=== PATIENT | female | born 1985 | race African-American/Black ===

== ENCOUNTER 2021-01-29 14:50 | Inpatient (IN) | payer MEDICARE, OTHER ==
[~2021-01-29] VITALS: Ht 160 cm; Wt 119.5 kg
--- NOTE | 2021-01-29 15:20 | NUR ---
35 YRS FEMALE TRANSFER FROM SNF FOR missing HD LAST HD ON 01/20/21 PT AV SHUNT ON LT UPPER ARM with good bruit seen by dr BYRD
[2021-01-29 15:36] LABS: HEMATOCRIT 24.9 % (31.2-41.9); MEAN CORPUSCULAR HEMOGLOBIN 30.8 uug (24.7-32.8); MEAN CORPUSCULAR VOLUME 96.5 fL (75.5-95.3); PLATELET COUNT (AUTO) 199 K/uL (179-408)
[2021-01-29 15:50] LABS: BILIRUBIN,DIRECT 0.3 mg/dL (0.0-0.2); BILIRUBIN,TOTAL 0.7 mg/dL (0.2-1.0)
[2021-01-29 16:00] LABS: POTASSIUM 5.5 mmol/L (3.5-5.1)
[2021-01-29 16:02] LABS: CREATININE 9.1 mg/dL (0.6-1.3)
--- NOTE | 2021-01-29 16:40 | NUR ---
no pain noted plan to admit pt inpt for HD genralized edema skin intact coved swab sent to lab
--- NOTE | 2021-01-29 17:10 | NUR ---
blood drow by lab tach vs stable
[2021-01-29] MEDS ORDERED: ONDANSETRON 4 MG/2 ML VIAL IV PRN (17:45)
[2021-01-29] MEDS ORDERED: MAGNESIUM HYDROXIDE 30 ML LIQUID UDC PO PRN (17:45)
[2021-01-29] MEDS ORDERED: Z GUARD REMEDY PASTE 57 GM TUBE TOP PRN (17:45)
[2021-01-29] MEDS ORDERED: DOCU100C36 PO (17:46)
[2021-01-29] MEDS ORDERED: CARV3.122 PO (17:46)
[2021-01-29] MEDS ORDERED: PANT40TA2 PO (17:46)
[2021-01-29] MEDS ORDERED: IPRA3AMP23 NEB (17:46)
[2021-01-29] MEDS ORDERED: FOLI0.8T43 PO (17:46)
[2021-01-29] MEDS ORDERED: ATOR40TA PO (17:46)
[2021-01-29] MEDS ORDERED: MIDO5TAB5 PO (17:46)
[2021-01-29] MEDS ORDERED: ASCO500T10 PO (17:46)
[2021-01-29] MEDS ORDERED: FENO48TA6 PO (17:46)
[2021-01-29] MEDS ORDERED: CHOL-9 PO (17:46)
[2021-01-29] MEDS ORDERED: BICT1TAB PO (17:46)
[2021-01-29] MEDS ORDERED: SENN-18 PO (17:46)
[2021-01-29] MEDS ORDERED: DIVA250T PO (17:46)
--- NOTE | 2021-01-29 18:10 | NUR ---
resting and comfortable no pain noted wating for lab result
[2021-01-29] MEDS ORDERED: DEXTROSE 50% 50 ML DISP.SYRIN IV PRN (18:45)
[2021-01-29] MEDS ORDERED: INSULIN REGULAR, HUMAN 300 UNITS/3 ML VIAL SQ PRN (18:45)
[2021-01-29] MEDS ORDERED: INSULIN REGULAR, HUMAN 300 UNIT/3 ML VIAL SQ PRN (18:45)
--- NOTE | 2021-01-29 19:18 | NUR ---
HAND OFF TO Alex patel for room
[2021-01-29] MEDS: CARVEDILOL 3.125 MG TABLET PO SCH (19:28)
[2021-01-29] MEDS ORDERED: CARVEDILOL 3.125 MG TABLET ONE (19:34)
--- NOTE | 2021-01-29 20:28 | NUR ---
Report given to Enedelia PENA Tele.
[2021-01-29] MEDS: FENOFIBRATE NANOCRYSTALLIZED 48 MG TABLET PO SCH (21:00)
--- NOTE | 2021-01-29 21:00 | NUR ---
Admitted a 35 years old female with Dx of fluid overload and ESRD. Patient AAox4. In no acute distress. On O2 at 2LPM via NC in place. AV shunt on left upper arm. IV site on right hand intact and patent. NSR on tele with HR of 68/min. Routine admission cafe done. Plan of care initiated. Safety measure initiated and call bel within reached.
[2021-01-29] MEDS: ATORVASTATIN 40 MG TABLET PO SCH (21:38)
[2021-01-29] MEDS: SENNOSIDES 1 TABLET PO SCH (21:38)
[2021-01-29] MEDS: ACETAMINOPHEN 325 MG TABLET PO PRN (21:40)
[2021-01-29] MEDS: BLOOD SUGAR DIAGNOSTIC 1 EACH STRIP VI SCH (21:45)
--- NOTE | 2021-01-29 21:56 | NUR ---
Tricor medication not available per supervisor furnace room Kristin
--- NOTE | 2021-01-29 23:01 | NUR ---
Informed GEOPHYSICIST Inga Enriquez that patient has a hanging IV site on right hand and patient reported that she is a hard stick. Obtained order to place midline.
--- NOTE | 2021-01-30 00:04 | NUR ---
Patient accidentally pulled out IV on right hand area. Midline insertion done by Guilherme on right upper arm.
[2021-01-30 04:00] VITALS: BP 157/86
--- NOTE | 2021-01-30 06:14 | NUR ---
Patient sleeping in bed at this time. In no apparent distress. O2 at 2LPM via NC in place. O2 sat at 99%. AV shunt to left upper arm. Midline on right upper arm intact and patent. Needs attended to and met. Safety measure maintained and call martin within reached.
--- NOTE | 2021-01-30 06:23 | NUR ---
NSR on tele with HR of 75/min.
[2021-01-30] MEDS: BLOOD SUGAR DIAGNOSTIC 1 EACH STRIP VI SCH ×4 (06:32→21:17)
[2021-01-30 08:10] LABS: HEMATOCRIT 24.3 % (31.2-41.9); MEAN CORPUSCULAR VOLUME 96.7 fL (75.5-95.3); PLATELET COUNT (AUTO) 213 K/uL (179-408)
[2021-01-30] MEDS: DIVALPROEX ER 500 MG TAB.SR.24H PO SCH (08:26)
[2021-01-30] MEDS: CARVEDILOL 3.125 MG TABLET PO SCH ×2 (08:26→17:18)
[2021-01-30] MEDS: PANTOPRAZOLE SODIUM 40 MG TABLET.DR PO SCH (08:27)
[2021-01-30] MEDS: ASCORBIC ACID 500 MG TABLET PO SCH (08:27)
[2021-01-30] MEDS: FOLIC ACID/VITAMIN B COMP W-C TABLET PO SCH (08:27)
[2021-01-30] MEDS: CHOLECALCIFEROL 1,000 UNIT TABLET PO SCH (08:27)
[2021-01-30 08:30] LABS: MAGNESIUM 2.2 mg/dL (1.8-2.4); PHOSPHOROUS 5.9 mg/dL (2.5-4.9); POTASSIUM 5.5 mmol/L (3.5-5.1)
[2021-01-30 08:39] LABS: CREATININE 9.6 mg/dL (0.6-1.3)
[2021-01-30] MEDS ORDERED: [UNRECOGNIZED DRUG - OTHER] PO SCH (09:00)
[2021-01-30] MEDS ORDERED: CHOLECALCIFEROL 1000 MG PO SCH (09:00)
[2021-01-30] MEDS ORDERED: BIKTARVY PO SCH (09:00)
--- NOTE | 2021-01-30 11:05 | NUR ---
The patient is on dialysis. The dialysis nurse told the infectious waste technician to come back after 1:30 pm.
[2021-01-30] MEDS ORDERED: EPOETIN ALFA 10,000 UNITS/ML VIAL SQ SCH (11:30)
[2021-01-30 11:41] VITALS: BP 151/80
[2021-01-30] MEDS: SEVELAMER CARBONATE 800 MG TABLET PO SCH ×2 (12:36→17:26)
[2021-01-30 15:02] VITALS: BP 144/78
[2021-01-30] MEDS: EPOETIN ALFA-EPBX 10,000 UNIT/ML VIAL SQ SCH (15:26)
[2021-01-30] MEDS: ACETAMINOPHEN 325 MG TABLET PO PRN (17:23)
[2021-01-30] MEDS: DOCUSATE SODIUM 100 MG CAPSULE PO SCH (19:12)
[2021-01-30 20:00] VITALS: BP 159/83
[2021-01-30] MEDS: SENNOSIDES 1 TABLET PO SCH (21:13)
[2021-01-30] MEDS: ATORVASTATIN 40 MG TABLET PO SCH (21:13)
[2021-01-30] MEDS: FENOFIBRATE NANOCRYSTALLIZED 48 MG TABLET PO SCH (21:13)
[2021-01-31] MEDS: BLOOD SUGAR DIAGNOSTIC 1 EACH STRIP VI SCH ×4 (06:44→21:10)
[2021-01-31 08:04] LABS: HEMATOCRIT 23.3 % (31.2-41.9); MEAN CORPUSCULAR HEMOGLOBIN 31.2 uug (24.7-32.8); MEAN CORPUSCULAR VOLUME 96.4 fL (75.5-95.3); PLATELET COUNT (AUTO) 199 K/uL (179-408)
[2021-01-31] MEDS: DOCUSATE SODIUM 100 MG CAPSULE PO SCH ×2 (08:04→16:01)
[2021-01-31] MEDS: ASCORBIC ACID 500 MG TABLET PO SCH (08:05)
[2021-01-31] MEDS: PANTOPRAZOLE SODIUM 40 MG TABLET.DR PO SCH (08:05)
[2021-01-31] MEDS: CHOLECALCIFEROL 1,000 UNIT TABLET PO SCH (08:05)
[2021-01-31] MEDS: CARVEDILOL 3.125 MG TABLET PO SCH ×2 (08:05→16:02)
[2021-01-31] MEDS: FOLIC ACID/VITAMIN B COMP W-C TABLET PO SCH (08:05)
[2021-01-31] MEDS: DIVALPROEX ER 500 MG TAB.SR.24H PO SCH (08:05)
[2021-01-31] MEDS: SEVELAMER CARBONATE 800 MG TABLET PO SCH ×3 (08:05→17:04)
[2021-01-31 08:34] LABS: POTASSIUM 4.8 mmol/L (3.5-5.1)
[2021-01-31 08:35] LABS: CREATININE 7.8 mg/dL (0.6-1.3)
[2021-01-31 12:18] VITALS: BP 150/81
[2021-01-31] MEDS ORDERED: AMOXICILLIN-CLAVUL 500-125MG TABLET PO SCH (13:30)
[2021-01-31] MEDS: ACETAMINOPHEN 325 MG TABLET PO PRN ×3 (15:16→21:09)
[2021-01-31 15:21] VITALS: BP 160/91
--- NOTE | 2021-01-31 19:30 | NUR ---
Awake alert and oriented x4. Resting in bed. Is on BRP, ambulates with FWW, with SBA. Denies any pain or discomfort at this time. No complaints of SOB, on 2L/min via NC Sating 100%. patient to have dialysis in am. AV fistula to left upper arm. Bruit present. Needs assessed and met. Safety measures initiated. Call light within reach.
[2021-01-31 20:55] VITALS: BP 153/80
[2021-01-31] MEDS: FENOFIBRATE NANOCRYSTALLIZED 48 MG TABLET PO SCH (21:09)
[2021-01-31] MEDS: ATORVASTATIN 40 MG TABLET PO SCH (21:09)
[2021-01-31] MEDS: SENNOSIDES 1 TABLET PO SCH (21:09)
[2021-01-31] MEDS: TEMAZEPAM 15 MG CAPSULE PO SCH (23:16)
--- NOTE | 2021-01-31 23:30 | NUR ---
Patient complain of insomnia. MEETING SPECIALIST, Mina, made aware. Patient requests Restoril. New orders for Restoril QHS noted and carried out. Effective at this time.
[2021-02-01 04:53] VITALS: BP 165/85
--- NOTE | 2021-02-01 05:48 | NUR ---
Patient slept well after Restoril administered. Noted with one episode of speaking to herself prior to restoril administration. Is on BRP, ambulates with FWW, with SBA. Denies any pain or discomfort at this time, no c/o0 chest pain. No significant event during this shift. No complaints of SOB, on 2L/min via NC sating 100%. AV fistula to left upper arm. Bruit present. Needs assessed and met. Call light within reach.
[2021-02-01] MEDS: BLOOD SUGAR DIAGNOSTIC 1 EACH STRIP VI SCH ×4 (06:39→20:19)
[2021-02-01 06:47] LABS: HEMATOCRIT 24.4 % (31.2-41.9); MEAN CORPUSCULAR HEMOGLOBIN 31.5 uug (24.7-32.8); MEAN CORPUSCULAR VOLUME 96.9 fL (75.5-95.3); PLATELET COUNT (AUTO) 192 K/uL (179-408)
[2021-02-01 07:05] LABS: POTASSIUM 5.2 mmol/L (3.5-5.1)
[2021-02-01] MEDS: SEVELAMER CARBONATE 800 MG TABLET PO SCH ×3 (08:00→17:25)
[2021-02-01] MEDS: DOCUSATE SODIUM 100 MG CAPSULE PO SCH ×2 (09:00→17:27)
[2021-02-01] MEDS: ASCORBIC ACID 500 MG TABLET PO SCH (09:00)
[2021-02-01] MEDS: CHOLECALCIFEROL 1,000 UNIT TABLET PO SCH (09:00)
[2021-02-01] MEDS: FOLIC ACID/VITAMIN B COMP W-C TABLET PO SCH (09:00)
[2021-02-01] MEDS: CARVEDILOL 3.125 MG TABLET PO SCH ×2 (09:00→17:27)
[2021-02-01] MEDS: PANTOPRAZOLE SODIUM 40 MG TABLET.DR PO SCH (09:00)
[2021-02-01] MEDS: DIVALPROEX ER 500 MG TAB.SR.24H PO SCH (09:00)
[2021-02-01 09:04] LABS: CREATININE 8.4 mg/dL (0.6-1.3)
[2021-02-01] MEDS: AMLODIPINE 5 MG TABLET PO SCH (09:30)
--- NOTE | 2021-02-01 10:58 | NUR ---
PATIENT JUST STARTED ON DIALYSIS SO MEDICATIONS WILL BE HELD UNTIL AFTER THE DIALYSIS
[2021-02-01] MEDS ORDERED: ALBUTEROL SULFATE 8 GM HFA.AER.AD IH PRN (14:00)
[2021-02-01] MEDS: ACETAMINOPHEN 325 MG TABLET PO PRN (14:04)
--- NOTE | 2021-02-01 14:30 | NUR ---
Clinical Social Work Note SW consult was requested for continuity of care. Patient is a 35 year old female who is alert and oriented x4. Patient presents with a congruent affect. Patient stated that she has placement upon discharge which she states is [address] [facility] [address] . Patient stated that she would like assistance with referrals on free cell phones. Patient stated that she does not have a need for additional resources. Plan: SW will return to provide patient with resources for low cost phone services.
[2021-02-01] MEDS: ALBUTEROL SULFATE 2.5 MG/3 ML NEBU NEB PRN (15:07)
[2021-02-01 16:00] VITALS: BP 101/75
[2021-02-01] MEDS ORDERED: hydrALAZINE HCL 10 MG TABLET PO ONE (19:45)
--- NOTE | 2021-02-01 19:45 | NUR ---
Received patient in bed. Noted to have a nose bleed in both nares. Pressure applied to nasal bridge with help. B/P check at 177/100. Patient denies any headache or dizziness. STAGE MANAGER, Mina, made aware with a one time order of hydralazine 10mg PO times one now. Order enter and carried out. Continues on 2L 02 via NC, 02 sats 91, No SOB. Needs assessed and met. Walker and call light within reach.
[2021-02-01 20:12] VITALS: BP 178/100
[2021-02-01] MEDS: ATORVASTATIN 40 MG TABLET PO SCH (20:19)
[2021-02-01] MEDS: SENNOSIDES 1 TABLET PO SCH (20:19)
[2021-02-01] MEDS: FENOFIBRATE NANOCRYSTALLIZED 48 MG TABLET PO SCH (20:19)
[2021-02-01] MEDS: TEMAZEPAM 15 MG CAPSULE PO SCH (20:19)
[2021-02-02] MEDS: ACETAMINOPHEN 325 MG TABLET PO PRN (01:28)
[2021-02-02 02:00] VITALS: BP 167/87
[2021-02-02 04:15] VITALS: BP 151/95
--- NOTE | 2021-02-02 06:18 | NUR ---
Patient slept well. Is on BRP, ambulates with FWW, with SBA. Denies any pain or discomfort at this time, no c/o chest pain. No significant event during this shift. On 2L/min via NC sating 98%. AV fistula to left upper arm. Bruit present. Right upper midline intact and patent. Needs assessed and met. Call light within reach.
[2021-02-02] MEDS: BLOOD SUGAR DIAGNOSTIC 1 EACH STRIP VI SCH ×4 (06:37→20:20)
[2021-02-02] MEDS: DOCUSATE SODIUM 100 MG CAPSULE PO SCH ×2 (09:39→17:00)
[2021-02-02] MEDS: FOLIC ACID/VITAMIN B COMP W-C TABLET PO SCH (09:39)
[2021-02-02] MEDS: ASCORBIC ACID 500 MG TABLET PO SCH (09:39)
[2021-02-02] MEDS: DIVALPROEX ER 500 MG TAB.SR.24H PO SCH (09:39)
[2021-02-02] MEDS: CHOLECALCIFEROL 1,000 UNIT TABLET PO SCH (09:39)
[2021-02-02] MEDS: PANTOPRAZOLE SODIUM 40 MG TABLET.DR PO SCH (09:39)
[2021-02-02] MEDS: SEVELAMER CARBONATE 800 MG TABLET PO SCH ×3 (09:39→17:06)
[2021-02-02] MEDS: CARVEDILOL 3.125 MG TABLET PO SCH ×2 (09:42→17:05)
[2021-02-02] MEDS: AMLODIPINE 5 MG TABLET PO SCH (09:42)
[2021-02-02 12:00] VITALS: BP 176/83
[2021-02-02] MEDS: ALBUTEROL SULFATE 2.5 MG/3 ML NEBU NEB PRN (15:06)
[2021-02-02] MEDS: EPOETIN ALFA-EPBX 10,000 UNIT/ML VIAL SQ SCH (15:58)
[2021-02-02 16:00] VITALS: BP 142/76
--- NOTE | 2021-02-02 17:00 | NUR ---
CALL RECEIVED FROM NATHAN HOLLOWAY MD OPHTHALMOLOGIST STATED THAT PATIENT WILL NOT BE DISCHARGED TODAY AND NOTED PATIENT AWARE
[2021-02-02] MEDS ORDERED: AMLO-212 PO (17:05)
[2021-02-02] MEDS ORDERED: AMOX1TAB15 PO (17:05)
[2021-02-02 17:32] LABS: HEPATITIS B SURFACE AG Negative
--- NOTE | 2021-02-02 18:00 | NUR ---
PATIENT SEEN BY DR RUELAS WITH NEW ORDERS AND NOTED PATIENT IS FOR DIALYSIS TOMORROW.
--- NOTE | 2021-02-02 19:15 | NUR ---
Received patient lying in bed, on 2L NC, midline intact and patent, denies any pain or discomfort at this time, pt aware of fluid restriction, call lights within reach, safety measures initiated.
[2021-02-02 20:00] VITALS: BP 151/80
[2021-02-02] MEDS: ATORVASTATIN 40 MG TABLET PO SCH (20:12)
[2021-02-02] MEDS: TEMAZEPAM 15 MG CAPSULE PO SCH (20:12)
[2021-02-02] MEDS: SENNOSIDES 1 TABLET PO SCH (20:12)
[2021-02-02] MEDS: FENOFIBRATE NANOCRYSTALLIZED 48 MG TABLET PO SCH (20:13)
--- NOTE | 2021-02-03 03:00 | NUR ---
nosebleed from both nares, applied pressure on nose bridge with assist, cool towel placed on forehead, bleeding has stopped.
--- NOTE | 2021-02-03 03:49 | NUR ---
endorsed report to JEAN Zamudio.
--- NOTE | 2021-02-03 03:51 | NUR ---
report josé stanley rn for further care. Addendum: 02/03/21 at 0354 by REGISTRY [facility] RN3 RN hbg level 7.9.with no orders made,
[2021-02-03 04:11] VITALS: BP_SYST 162; BP_SYST 163; BP_DIAS 87; BP_DIAS 95
--- NOTE | 2021-02-03 04:13 | NUR ---
blood pressure rechecked 162/95. patient has nose bleed prior and oxygen humidified and noted gauzxe to the bilateral nostrils to pressure to stop bleeding.no further bleeding noted, Addendum: 02/03/21 at 3207 by REGISTRY [facility] IN[facility]IENT RN3 RN Dr Mina vasquez for the elevated blood pressure,message left ,awaiting response
[2021-02-03] MEDS: CARVEDILOL 3.125 MG TABLET PO SCH (05:19)
--- NOTE | 2021-02-03 05:28 | NUR ---
coreg dose given early . will continue to observe .head of bed elevated high back rest
--- NOTE | 2021-02-03 05:54 | NUR ---
Dr Kate called back and with orders and carried out Addendum: 02/03/21 at 0754 by REGISTRY [facility] INPATIENT RN3 RN GAVE ORDERS FOR LORAZEPAM DOSE X 1 FOR ANXIETY BUT PATIENT IS CALM NOW SO DOSE HELD .
[2021-02-03] MEDS ORDERED: LORAZEPAM 1 MG TABLET PO ONE (06:15)
[2021-02-03] MEDS: BLOOD SUGAR DIAGNOSTIC 1 EACH STRIP VI SCH ×2 (06:46→12:00)
--- NOTE | 2021-02-03 07:02 | NUR ---
mother baby rn cslled for the hemodialysis today.bed weighing scale is not working.unable to wiegh the patient
[2021-02-03 07:09] LABS: HEMATOCRIT 23.8 % (31.2-41.9); MEAN CORPUSCULAR HEMOGLOBIN 31.4 uug (24.7-32.8); MEAN CORPUSCULAR VOLUME 97.4 fL (75.5-95.3); PLATELET COUNT (AUTO) 169 K/uL (179-408)
[2021-02-03 07:15] LABS: PHOSPHOROUS 4.2 mg/dL (2.5-4.9)
[2021-02-03 07:22] LABS: CREATININE 7.9 mg/dL (0.6-1.3)
[2021-02-03] MEDS: PANTOPRAZOLE SODIUM 40 MG TABLET.DR PO SCH (08:53)
[2021-02-03] MEDS: FOLIC ACID/VITAMIN B COMP W-C TABLET PO SCH (08:53)
[2021-02-03] MEDS: SEVELAMER CARBONATE 800 MG TABLET PO SCH ×2 (08:53→12:45)
[2021-02-03] MEDS: DIVALPROEX ER 500 MG TAB.SR.24H PO SCH (08:53)
[2021-02-03] MEDS: ASCORBIC ACID 500 MG TABLET PO SCH (08:53)
[2021-02-03] MEDS: CHOLECALCIFEROL 1,000 UNIT TABLET PO SCH (08:53)
[2021-02-03] MEDS: AMLODIPINE 5 MG TABLET PO SCH (08:54)
[2021-02-03] MEDS: DOCUSATE SODIUM 100 MG CAPSULE PO SCH (08:59)
--- NOTE | 2021-02-03 09:00 | NUR ---
BALLAST REGULATOR OPERATOR HERE AND DIALYSIS STARTED ORDERED PATIENT SEEN AND EXAMINED BY NATHAN HOLLOWAY AND HE STATED THAT PATIENT WILL BE DISCHARGED BACK TO SNF AFTER DIALYSIS AND PATIENT IS STABLE AND SNF READY TO ACCEPT PATIENT BACK.
[2021-02-03 11:32] VITALS: BP 163/89
[2021-02-03] MEDS ORDERED: AMOXICILLIN-CLAVUL 500-125MG TABLET PO ONE (12:30)
--- NOTE | 2021-02-03 13:15 | NUR ---
DIALYSIS COMPLETED AND 3000 REMOVED PATIENT IS BE[facility] AT ABOUT 1500 PATIENT AWARE
--- NOTE | 2021-02-03 13:53 | NUR ---
CALLED [facility] TO GIVE REPORT WAS KEPT ON HOLD FOR 10 MINUTES AND PER ARACELIS WATER RESOURCES PROJECT MANAGER WILL HAVE THE SUPERVISOR WET ROOM TO CALL ME FOR REPORT PATIENT WILL BE PICKED UP AT 1500
--- NOTE | 2021-02-03 16:15 | NUR ---
PATIENT DISCHARGED PICKED UP BY THE [facility] IN SATISFACTORY CONDITION WITH DISCHARGE INSTRUCTIONS AND ALL HER PERSONAL BELONGINGS MID LINE REMOVED WITH NO BLEEDING NOT IN DISTRESS AT THIS TIME.
[2021-02-03 16:21] VITALS: BP 144/81
[2021-02-03] MEDS ORDERED: CARVEDILOL 6.25 MG TABLET PO SCH (18:00)
[2021-02-04] MEDS ORDERED: AMOXICILLIN-CLAVUL 500-125MG TABLET PO SCH (13:00)
== END 2021-02-03 16:15 | DRG 640 ==
LOC: ER 14:50 → TELE3 20:37 → MEDSURG3 01-30 14:15
PROVIDERS: ADMIT Nurse Practitioner Acute Care; ATTEND Nurse Practitioner Family
PROC: 05H933Z Insertion of Infusion Device into Right Brachial Vein, Percutaneous Approach (ICD-10-PCS; principal; 2021-01-29)
PROC: 5A1D70Z Performance of Urinary Filtration, Intermittent, Less than 6 Hours Per Day (ICD-10-PCS; 2021-01-30)
PROC: 5A1D70Z Performance of Urinary Filtration, Intermittent, Less than 6 Hours Per Day (ICD-10-PCS; 2021-02-01)
PROC: 5A1D70Z Performance of Urinary Filtration, Intermittent, Less than 6 Hours Per Day (ICD-10-PCS; 2021-02-03)
DX: E87.70 Fluid overload, unspecified (principal); N18.6 End stage renal disease; J96.20 Acute and chronic respiratory failure, unspecified whether with hypoxia or hypercapnia; I13.2 Hypertensive heart and chronic kidney disease with heart failure and with stage 5 chronic kidney disease, or end stage renal disease; E44.0 Moderate protein-calorie malnutrition; E11.22 Type 2 diabetes mellitus with diabetic chronic kidney disease; I50.9 Heart failure, unspecified; Z99.2 Dependence on renal dialysis; Z91.15 Patient's noncompliance with renal dialysis; D63.1 Anemia in chronic kidney disease; E66.01 Morbid (severe) obesity due to excess calories; Z68.37 Body mass index [BMI] 37.0-37.9, adult; E78.5 Hyperlipidemia, unspecified; E87.5 Hyperkalemia; F17.210 Nicotine dependence, cigarettes, uncomplicated; F25.9 Schizoaffective disorder, unspecified; F31.9 Bipolar disorder, unspecified; G89.4 Chronic pain syndrome; H66.90 Otitis media, unspecified, unspecified ear; I07.1 Rheumatic tricuspid insufficiency; I27.20 Pulmonary hypertension, unspecified; J44.9 Chronic obstructive pulmonary disease, unspecified; M32.9 Systemic lupus erythematosus, unspecified; K21.9 Gastro-esophageal reflux disease without esophagitis; Z91.010 Allergy to peanuts
CPT/HCPCS: 36415; 70030-TC; 71045; 76642; 83735; 84100; 85025; 86706; 86850; 86900; 86901; 87340; 90937; 93005; 93307; 94664; A4663; G0378; J0885; J2405; J7030

== ENCOUNTER 2021-08-19 10:46 | Inpatient (IN) | payer MEDICARE, OTHER ==
[~2021-08-19] VITALS: Ht 165.1 cm; Wt 92.5 kg
[~2021-08-19 10:46] MED LIST: AMLO-212 PO; AMOX1TAB15 PO; ASCO500T10 PO; ATOR40TA PO; BICT1TAB PO; CARV3.122 PO; CHOL-9 PO; DIVA250T PO; DOCU100C36 PO; FENO48TA6 PO; FOLI0.8T43 PO; IPRA3AMP23 NEB; PANT40TA2 PO; SENN-18 PO
--- NOTE | 2021-08-19 11:08 | NUR ---
PT IS IN ROOM #2B. DR PENNINGTON EVALUATED THE PT.
[2021-08-19 11:28] LABS: HEMATOCRIT 27.6 % (31.2-41.9); MEAN CORPUSCULAR HEMOGLOBIN 29.6 uug (24.7-32.8); MEAN CORPUSCULAR VOLUME 91.6 fL (75.5-95.3); PLATELET COUNT (AUTO) 163 K/uL (179-408)
[2021-08-19 11:40] LABS: BILIRUBIN,DIRECT 0.3 mg/dL (0.0-0.2); BILIRUBIN,TOTAL 0.5 mg/dL (0.2-1.0); POTASSIUM 4.6 mmol/L (3.5-5.1); TOTAL PROTEIN, SERUM 8.3 g/dL (6.4-8.2)
--- NOTE | 2021-08-19 14:36 | NUR ---
PT WENT TO RESTROOM TO URINATE. GAIT IS STABLE.
[2021-08-19] MEDS ORDERED: HYDR2TAB4 PO (18:23)
[2021-08-19] MEDS ORDERED: OLAN5TAB70 PO (18:23)
[2021-08-19] MEDS ORDERED: SERT25TA PO (18:23)
[2021-08-19] MEDS ORDERED: HYDR-4077 PO (18:23)
[2021-08-19] MEDS ORDERED: ACET-2154 PO ×2 (18:23→18:24)
[2021-08-19] MEDS ORDERED: DIVA-78 PO (18:23)
[2021-08-19] MEDS ORDERED: VIT1TABL44 PO (18:23)
[2021-08-19] MEDS ORDERED: NYST5ORA PO (18:23)
[2021-08-19] MEDS ORDERED: IPRA3AMP23 IH (18:24)
[2021-08-19] MEDS ORDERED: OXYM15MI4 NS (18:24)
[2021-08-19] MEDS ORDERED: OLAN10TA73 PO (18:24)
[2021-08-19] MEDS ORDERED: MIDO5TAB5 PO (18:24)
[2021-08-19] MEDS ORDERED: ALBU8.5H8 IH (18:24)
[2021-08-19] MEDS ORDERED: PREG50CA PO (18:24)
[2021-08-19] MEDS ORDERED: BENZ1LOZ58 MM (18:24)
[2021-08-19 20:30] VITALS: BP 156/70
--- NOTE | 2021-08-19 20:30 | NUR ---
Pt. admitted to med surg room 322 , under care of Dr. Ko Belongs List completed Juve RN aware of patient's arrival
[2021-08-19] MEDS: ATORVASTATIN 40 MG TABLET PO SCH (21:35)
[2021-08-19] MEDS: SENNOSIDES 1 TABLET PO SCH (21:35)
[2021-08-19] MEDS: FENOFIBRATE NANOCRYSTALLIZED 48 MG TABLET PO SCH (21:35)
[2021-08-19] MEDS: MORPHINE SULFATE 2 MG/1 ML DISP.SYRIN IV PRN (21:45)
[2021-08-20] MEDS: MORPHINE SULFATE 2 MG/1 ML DISP.SYRIN IV PRN ×4 (03:15→20:56)
[2021-08-20 04:27] VITALS: BP 121/69
[2021-08-20] MEDS: PANTOPRAZOLE SODIUM 40 MG TABLET.DR PO SCH (06:25)
[2021-08-20 06:42] LABS: HEMATOCRIT 27.7 % (31.2-41.9); MEAN CORPUSCULAR HEMOGLOBIN 29.3 uug (24.7-32.8); MEAN CORPUSCULAR VOLUME 91.2 fL (75.5-95.3); PLATELET COUNT (AUTO) 156 K/uL (179-408)
[2021-08-20 07:22] LABS: BILIRUBIN,TOTAL 0.6 mg/dL (0.2-1.0); PHOSPHOROUS 4.2 mg/dL (2.5-4.9); POTASSIUM 5.2 mmol/L (3.5-5.1); TOTAL PROTEIN, SERUM 8.3 g/dL (6.4-8.2)
[2021-08-20] MEDS: FOLIC ACID/VITAMIN B COMP W-C TABLET PO SCH (08:44)
[2021-08-20] MEDS: CHOLECALCIFEROL 1,000 UNIT TABLET PO SCH (08:44)
[2021-08-20] MEDS: ASCORBIC ACID 500 MG TABLET PO SCH (08:44)
[2021-08-20] MEDS: CARVEDILOL 3.125 MG TABLET PO SCH ×2 (08:44→16:41)
[2021-08-20] MEDS: DOCUSATE SODIUM 100 MG CAPSULE PO SCH ×2 (08:45→16:40)
[2021-08-20] MEDS: DIVALPROEX 500 MG TABLET.DR PO SCH (08:45)
[2021-08-20] MEDS ORDERED: CHOLECALCIFEROL 1000 MG PO SCH (09:00)
[2021-08-20] MEDS ORDERED: DIVALPROEX 500 MG TABLET.DR PO SCH (09:00)
[2021-08-20] MEDS ORDERED: AMLODIPINE 5 MG TABLET PO SCH (09:00)
[2021-08-20] MEDS ORDERED: DIVALPROEX ER 250 MG TAB.SR.24H PO SCH (09:00)
[2021-08-20] MEDS ORDERED: FOLIC ACID/VITAMIN B COMP W-C TABLET PO SCH (09:00)
[2021-08-20 12:18] VITALS: BP 129/75
[2021-08-20 16:00] VITALS: BP 141/84
[2021-08-20 20:00] VITALS: BP 125/66
[2021-08-20] MEDS: SENNOSIDES 1 TABLET PO SCH (20:55)
[2021-08-20] MEDS: FENOFIBRATE NANOCRYSTALLIZED 48 MG TABLET PO SCH (20:55)
[2021-08-20] MEDS: ATORVASTATIN 40 MG TABLET PO SCH (20:55)
[2021-08-21] MEDS: MORPHINE SULFATE 2 MG/1 ML DISP.SYRIN IV PRN ×6 (01:39→20:22)
[2021-08-21 04:00] VITALS: BP 143/82
--- NOTE | 2021-08-21 05:52 | NUR ---
Pt able to make needs known, AOX4. On 3L NC tolerating well. IV site intact, tolerated all medications given. Dressing kept clean and dry on abdomen, serosanguineous fluid draining due to paracentesis. Able to transfer to bedside commode. Safety maintained. Will endorse to day shift.
[2021-08-21] MEDS: PANTOPRAZOLE SODIUM 40 MG TABLET.DR PO SCH (06:10)
[2021-08-21] MEDS: CHOLECALCIFEROL 1,000 UNIT TABLET PO SCH (08:48)
[2021-08-21] MEDS: FOLIC ACID/VITAMIN B COMP W-C TABLET PO SCH (08:48)
[2021-08-21] MEDS: DIVALPROEX 500 MG TABLET.DR PO SCH (08:48)
[2021-08-21] MEDS: ASCORBIC ACID 500 MG TABLET PO SCH (08:49)
[2021-08-21] MEDS: CARVEDILOL 3.125 MG TABLET PO SCH ×2 (08:49→16:34)
[2021-08-21] MEDS: DOCUSATE SODIUM 100 MG CAPSULE PO SCH ×2 (08:50→16:35)
[2021-08-21 11:39] VITALS: BP 132/65
--- NOTE | 2021-08-21 12:47 | NUR ---
patient leaking lot of fluids from her paracentesis site, keep changing abd pads frequently, talked to dr travis with order ot put pressure with more gauze and dressing on it, continue to reinforce and change dressing and monitor
[2021-08-21 15:27] VITALS: BP 120/66
[2021-08-21] MEDS: ATORVASTATIN 40 MG TABLET PO SCH (20:21)
[2021-08-21] MEDS: FENOFIBRATE NANOCRYSTALLIZED 48 MG TABLET PO SCH (20:22)
[2021-08-21] MEDS: SENNOSIDES 1 TABLET PO SCH (20:22)
[2021-08-21 20:58] VITALS: BP 131/72
[2021-08-22] MEDS: MORPHINE SULFATE 2 MG/1 ML DISP.SYRIN IV PRN ×5 (00:42→22:38)
--- NOTE | 2021-08-22 04:01 | NUR ---
AAOX4 Ambulatory. Admitted for ascites. Abdomen distended. Patient abdomen leaking due to paracentesis done the other day and was leaking. Dressing reinforced. On pain management., medicated with Morphine 2mg as needed. Relief noted. Continent of bowel and bladder. Will monitor patient.
[2021-08-22 04:42] VITALS: BP 131/68
[2021-08-22] MEDS: PANTOPRAZOLE SODIUM 40 MG TABLET.DR PO SCH (06:16)
[2021-08-22 07:51] LABS: HEMATOCRIT 27.9 % (31.2-41.9); MEAN CORPUSCULAR HEMOGLOBIN 29.7 uug (24.7-32.8); MEAN CORPUSCULAR VOLUME 91.5 fL (75.5-95.3); PLATELET COUNT (AUTO) 142 K/uL (179-408)
[2021-08-22 08:01] LABS: BILIRUBIN,TOTAL 0.5 mg/dL (0.2-1.0); CREATININE 5.9 mg/dL (0.6-1.3); POTASSIUM 6.1 mmol/L (3.5-5.1); TOTAL PROTEIN, SERUM 7.5 g/dL (6.4-8.2)
[2021-08-22] MEDS: DOCUSATE SODIUM 100 MG CAPSULE PO SCH ×2 (08:33→17:17)
[2021-08-22] MEDS: CHOLECALCIFEROL 1,000 UNIT TABLET PO SCH (08:33)
[2021-08-22] MEDS: DIVALPROEX 500 MG TABLET.DR PO SCH (08:33)
[2021-08-22] MEDS: FOLIC ACID/VITAMIN B COMP W-C TABLET PO SCH (08:33)
[2021-08-22] MEDS: ASCORBIC ACID 500 MG TABLET PO SCH (08:34)
[2021-08-22] MEDS: CARVEDILOL 3.125 MG TABLET PO SCH ×2 (08:38→17:21)
--- NOTE | 2021-08-22 09:42 | NUR ---
Patient is AAOX4 Abdomen distended. Patient abdomen leaking due to paracentesis done the other day and was leaking. Dressing reinforced. And dressing changed. On pain management, medicated with Morphine 2mg as needed at 08:40 am. Relief noted. Continent of bowel and bladder. Will continue to monitor
--- NOTE | 2021-08-22 10:49 | NUR ---
Pharmacy called and asked if the patient's medication (Biktarvy) was sent to [facility] from her facility [facility]. I called [facility] to see if they can send it here and they said they will call us back once they find out who can send it here. Will check on it later again today and make sure the medication is sent here today.
[2021-08-22 11:58] VITALS: BP 113/48
--- NOTE | 2021-08-22 12:35 | NUR ---
Chemo from [facility] called back and said he will drop the patient's medication (Biktarvy) around 6 pm. As soon as he drops it off here I will take it to the pharmacy.
[2021-08-22] MEDS ORDERED: SODIUM POLYSTYRENE SULFONATE 15 G/60 ML LIQUID UDC PO ONE (13:45)
[2021-08-22] MEDS: BIKTARVY PO SCH (16:25)
[2021-08-22 16:36] VITALS: BP 123/66
--- NOTE | 2021-08-22 19:00 | NUR ---
Received patient on bed, asleep, not in labored breathing , with ongoing oxygen at 3L via nasal cannula, with ongoing Dialysis, with access on left AV fistula, no signs of bleeding noted. safety precautions provided, call light placed within reach, with dialysis nurse at the bedside.
[2021-08-22 20:00] VITALS: BP 115/59
--- NOTE | 2021-08-22 22:00 | NUR ---
Hemodialysis completed, 2Liters removal for 3 hours duration per Dialysis nurse. Paracenthesis site with runny serous leakage, around skin area cleanse with normal saline. Kept the skin dry and clean.
[2021-08-22] MEDS: SENNOSIDES 1 TABLET PO SCH (22:35)
[2021-08-22 23:04] VITALS: BP 108/48
[2021-08-23] MEDS: MORPHINE SULFATE 2 MG/1 ML DISP.SYRIN IV PRN ×4 (02:08→15:45)
[2021-08-23 04:49] VITALS: BP 123/58
[2021-08-23] MEDS: PANTOPRAZOLE SODIUM 40 MG TABLET.DR PO SCH (06:12)
--- NOTE | 2021-08-23 06:43 | NUR ---
Slept well , paracentesis site still with serous leakage noted, measured 300cc within the shift. Requested Morphine 2x within the shift for pain in the abdomen and other parts of the body. Vitally stable. For continuity of care.
[2021-08-23 07:08] LABS: HEMATOCRIT 27.3 % (31.2-41.9); MEAN CORPUSCULAR HEMOGLOBIN 29.5 uug (24.7-32.8); MEAN CORPUSCULAR VOLUME 90.8 fL (75.5-95.3); PLATELET COUNT (AUTO) 131 K/uL (179-408)
[2021-08-23 07:22] LABS: CREATININE 4.7 mg/dL (0.6-1.3); POTASSIUM 4.7 mmol/L (3.5-5.1)
[2021-08-23] MEDS: DIVALPROEX 500 MG TABLET.DR PO SCH (09:10)
[2021-08-23] MEDS: CHOLECALCIFEROL 1,000 UNIT TABLET PO SCH (09:10)
[2021-08-23] MEDS: ASCORBIC ACID 500 MG TABLET PO SCH (09:10)
[2021-08-23] MEDS: DOCUSATE SODIUM 100 MG CAPSULE PO SCH ×2 (09:11→17:00)
[2021-08-23] MEDS: FOLIC ACID/VITAMIN B COMP W-C TABLET PO SCH (09:11)
[2021-08-23] MEDS: CARVEDILOL 3.125 MG TABLET PO SCH ×2 (09:11→17:00)
[2021-08-23] MEDS: BIKTARVY PO SCH (09:11)
--- NOTE | 2021-08-23 10:44 | NUR ---
awake and oriented x3, on 3 lpm nasal cannula satting 97%, denies pain or sob at this time. rfa iv access intact. pt is pleasant and talkative. left side paracentesis leakage per endorsement, noted still with serous drainage. pt appears comfortable. call light in reach. safety measures in place. cont to monitor.
[2021-08-23] MEDS ORDERED: HYDR2TAB4 PO (11:42)
[2021-08-23] MEDS ORDERED: ACET-2154 PO (11:42)
[2021-08-23 12:00] VITALS: BP 118/54
--- NOTE | 2021-08-23 15:57 | NUR ---
for discharge back to [facility], pt is agreeable and excited to go home. no acute distress satting 98% on 3lpm nasal cannula. discharge instructions explained to patient all questions answered and she verbalized understanding. report given to estella inman at [facility].
[2021-08-23 16:00] VITALS: BP 132/69
--- NOTE | 2021-08-23 16:49 | NUR ---
picked up by [facility] from [facility] via gurney. vs 1258/58 hr 64 t98.5 o2 100% 3lpm nc, no ss of pain. rfa iv removed. pt left with all personal belongings intact.
--- NOTE | 2021-08-23 16:53 | NUR ---
900ml of fluids emptied from bag during this shift. aware.
[2021-08-24 03:07] LABS: HEPATITIS B SURFACE AG Negative (Negative)
== END 2021-08-23 16:49 | DRG 432 ==
LOC: ER 10:46 → MEDSURG3 20:03
PROVIDERS: ADMIT Internal Medicine; ATTEND Internal Medicine
PROC: 0W9G3ZZ Drainage of Peritoneal Cavity, Percutaneous Approach (ICD-10-PCS; principal; 2021-08-20)
PROC: 5A1D70Z Performance of Urinary Filtration, Intermittent, Less than 6 Hours Per Day (ICD-10-PCS; 2021-08-22)
DX: K74.60 Unspecified cirrhosis of liver (principal); N18.6 End stage renal disease; R18.8 Other ascites; E87.1 Hypo-osmolality and hyponatremia; I42.9 Cardiomyopathy, unspecified; I50.30 Unspecified diastolic (congestive) heart failure; I13.2 Hypertensive heart and chronic kidney disease with heart failure and with stage 5 chronic kidney disease, or end stage renal disease; B48.8 Other specified mycoses; E11.22 Type 2 diabetes mellitus with diabetic chronic kidney disease; Z99.2 Dependence on renal dialysis; D63.1 Anemia in chronic kidney disease; E78.5 Hyperlipidemia, unspecified; E87.5 Hyperkalemia; F41.9 Anxiety disorder, unspecified; I27.20 Pulmonary hypertension, unspecified; J44.9 Chronic obstructive pulmonary disease, unspecified; Z20.822 Contact with and (suspected) exposure to COVID-19; M32.9 Systemic lupus erythematosus, unspecified; Z87.891 Personal history of nicotine dependence; I07.1 Rheumatic tricuspid insufficiency; E88.09 Other disorders of plasma-protein metabolism, not elsewhere classified; F20.9 Schizophrenia, unspecified; S01.502A Unspecified open wound of oral cavity, initial encounter; K21.9 Gastro-esophageal reflux disease without esophagitis; Y93.89 Activity, other specified; N25.0 Renal osteodystrophy; F31.9 Bipolar disorder, unspecified
CPT/HCPCS: 36415; 83550; 83690; 83735; 84100; 85025; 85730; 86704; 86706; 86803; 87340; 90937; A4663; A6209; G0378; J2270; J7040

== ENCOUNTER 2021-10-01 01:01 | Emergency (ER) | payer MEDICARE, OTHER ==
[~2021-10-01] VITALS: Ht 160 cm; Wt 104.8 kg
[~2021-10-01 01:01] MED LIST changes: +ACET-2154 PO; +ALBU8.5H8 IH; -AMLO-212 PO; -AMOX1TAB15 PO; -ATOR40TA PO; +DIVA-78 PO; -DIVA250T PO; -FENO48TA6 PO; -FOLI0.8T43 PO; +HYDR2TAB4 PO; -IPRA3AMP23 NEB; +OLAN10TA73 PO; +OLAN5TAB70 PO; +PREG50CA PO; +SERT25TA PO; +VIT1TABL44 PO
--- NOTE | 2021-10-01 01:10 | NUR ---
Dr Castro in room for PETER
[2021-10-01] MEDS ORDERED: HYDROMORPHONE 1 MG/1 ML DISP.SYRIN IV ONE (01:15)
[2021-10-01] MEDS ORDERED: IV NORMAL SALINE 1000 ML BAG IV ONE (01:15)
[2021-10-01] MEDS ORDERED: ONDANSETRON 4 MG/2 ML VIAL IV ONE (01:15)
[2021-10-01 01:31] LABS: HEMATOCRIT 28.5 % (31.2-41.9); MEAN CORPUSCULAR HEMOGLOBIN 31.3 uug (24.7-32.8); MEAN CORPUSCULAR VOLUME 94.8 fL (75.5-95.3); PLATELET COUNT (AUTO) 174 K/uL (179-408)
[2021-10-01 01:32] LABS: CREATININE 4.1 mg/dL (0.6-1.3); POTASSIUM 4.4 mmol/L (3.5-5.1)
[2021-10-01] MEDS ORDERED: ONDANSETRON 4 MG/2 ML VIAL ONE (01:36)
[2021-10-01 01:44] LABS: BILIRUBIN,DIRECT 0.3 mg/dL (0.0-0.2); BILIRUBIN,TOTAL 0.5 mg/dL (0.2-1.0); TOTAL PROTEIN, SERUM 8.5 g/dL (6.4-8.2)
[2021-10-01] MEDS ORDERED: HYDROMORPHONE 1 MG/1 ML DISP.SYRIN IM ONE ×2 (01:45→04:00)
--- NOTE | 2021-10-01 01:50 | NUR ---
Patient taken to CT
[2021-10-01] MEDS ORDERED: HYDROMORPHONE 1 MG/1 ML DISP.SYRIN ONE ×2 (01:57→04:04)
[2021-10-01] MEDS ORDERED: HYDROMORPHONE 2 MG/1 ML DISP.SYRIN ONE ×2 (01:57→04:04)
[2021-10-01] MEDS ORDERED: HYDR4TAB4 PO (02:05)
--- NOTE | 2021-10-01 02:11 | NUR ---
patient back from CT
[2021-10-01] MEDS ORDERED: LIDOCAINE HCL 2% 20 ML VIAL ONE (02:23)
[2021-10-01] MEDS ORDERED: LIDOCAINE HCL 2% 20 ML VIAL IJ ONE (02:30)
--- NOTE | 2021-10-01 05:30 | NUR ---
Called [facility] for transport. ETA [id number]
--- NOTE | 2021-10-01 07:33 | NUR ---
Gave [facility] ambulance unit 300 SBAR report.
--- NOTE | 2021-10-01 07:49 | NUR ---
Patient discharged to SNF in stable condition. Written and verbal after care instructions given. Patient verbalizes understanding of instructions. Stressed follow up or return to ER for worsening s/s.
[2021-10-01 07:50] VITALS: BP 141/74
== END 2021-10-01 07:51 ==
LOC: ER 01:07
DX: R18.8 Other ascites (principal); E11.22 Type 2 diabetes mellitus with diabetic chronic kidney disease; N18.6 End stage renal disease; Z99.2 Dependence on renal dialysis; Z91.010 Allergy to peanuts; D64.9 Anemia, unspecified; Z79.899 Other long term (current) drug therapy; F25.9 Schizoaffective disorder, unspecified; F31.9 Bipolar disorder, unspecified; J44.9 Chronic obstructive pulmonary disease, unspecified; J96.10 Chronic respiratory failure, unspecified whether with hypoxia or hypercapnia; E78.5 Hyperlipidemia, unspecified; R94.31 Abnormal electrocardiogram [ECG] [EKG]
CPT/HCPCS: 49082; 99285; 74176; 80076; 80048; 82945; 83615; 83690; 85025; 87070; 87205; 36415; 96372 ×2; 93005; 84155; J3490; J2405; J1170 ×4; A4663; A9540; C1758

== ENCOUNTER 2021-12-07 09:10 | Emergency (ER) | payer MEDICARE, OTHER ==
[~2021-12-07] VITALS: Ht 160 cm; Wt 90.7 kg
[~2021-12-07 09:10] MED LIST changes: +HYDR4TAB4 PO
--- NOTE | 2021-12-07 09:26 | NUR ---
info[facility]
[2021-12-07 09:57] LABS: HEMATOCRIT 30.3 % (31.2-41.9); MEAN CORPUSCULAR HEMOGLOBIN 32.2 uug (24.7-32.8); MEAN CORPUSCULAR VOLUME 98.8 fL (75.5-95.3); PLATELET COUNT (AUTO) 155 K/uL (179-408)
[2021-12-07] MEDS ORDERED: VIT1TABL44 PO (10:04)
[2021-12-07] MEDS ORDERED: CHOL100062 PO (10:17)
[2021-12-07] MEDS ORDERED: ATOR40TA PO (10:17)
[2021-12-07] MEDS ORDERED: FENO48TA6 PO (10:17)
[2021-12-07] MEDS ORDERED: MICO1KIT VG (10:18)
[2021-12-07] MEDS ORDERED: HYDR-4077 PO (10:19)
[2021-12-07] MEDS ORDERED: BENZ1LOZ58 PO (10:20)
[2021-12-07] MEDS ORDERED: MIDO5TAB5 PO (10:20)
[2021-12-07 10:21] LABS: BILIRUBIN,DIRECT 0.2 mg/dL (0.0-0.2); BILIRUBIN,TOTAL 0.5 mg/dL (0.2-1.0); CREATININE 4.9 mg/dL (0.6-1.3); POTASSIUM 4.6 mmol/L (3.5-5.1); TOTAL PROTEIN, SERUM 8.3 g/dL (6.4-8.2)
--- NOTE | 2021-12-07 10:44 | NUR ---
Dr Harding said, " Dr Grewal wants to rule-out TB on this patient and that Dr Grewal wants to transfer this patient to [facility]." Nursing Foamite Mixer Kristin notified.
--- NOTE | 2021-12-07 10:44 | NUR ---
Gely escuderomaame in EDM - 12/07/21 at [address] Harding said that Dr Grewal (patient's primary doctor) wants to rule-out TB on this patient and that Dr Grewal wants to transfer this patient to [facility]. Nursing Content Editor Kristin notified.
--- NOTE | 2021-12-07 11:21 | NUR ---
Per nursing supervisor scouring pads Kristin, "Please call Dr Jason Moe if he will accept this patient at [facility]. No assigned bed or nurse yet until Jason Moe accepts this patient." Dr Harding notified.
--- NOTE | 2021-12-07 11:36 | NUR ---
Patient accepted by Jason Cortes at [facility].
--- NOTE | 2021-12-07 11:59 | NUR ---
Gave report to Milly PENA at [facility].
--- NOTE | 2021-12-07 12:00 | NUR ---
Spoke with Avis at [facility] to arrange ALS transport. ETA is [phone].
--- NOTE | 2021-12-07 15:48 | NUR ---
Patient picked up by ambulance. All belongings brought with patient.
[2021-12-07 15:56] LABS: BAND % (MANUAL) 1 % (0-10); EOSINOPHILS % (MANUAL) 2 % (0-8); LYMPHOCYTES % (MANUAL) 22 % (20-40); MONOCYTES % (MANUAL) 21 % (2-10); NEUTROPHILS % (MANUAL) 54 % (42-75)
== END 2021-12-07 15:48 | disposition short-term general hospital (02) ==
LOC: ER 09:10
DX: R18.8 Other ascites (principal); K74.60 Unspecified cirrhosis of liver; E11.22 Type 2 diabetes mellitus with diabetic chronic kidney disease; N18.6 End stage renal disease; Z99.2 Dependence on renal dialysis; Z20.822 Contact with and (suspected) exposure to COVID-19; F25.9 Schizoaffective disorder, unspecified; F31.9 Bipolar disorder, unspecified; F17.210 Nicotine dependence, cigarettes, uncomplicated; E78.5 Hyperlipidemia, unspecified; E66.9 Obesity, unspecified; Z68.35 Body mass index [BMI] 35.0-35.9, adult; J44.9 Chronic obstructive pulmonary disease, unspecified; Z99.81 Dependence on supplemental oxygen; K21.9 Gastro-esophageal reflux disease without esophagitis; Z79.899 Other long term (current) drug therapy
CPT/HCPCS: 36415; 70030-TC; 71045; 85025; 85610; 93005; A4663